=== PATIENT | female | born 1980 | race Caucasian/White ===

== ENCOUNTER 2024-09-16 09:01 | Outpatient (CLI) | payer OTHER, SELFPAY ==
--- NOTE | 2024-09-16 09:15 | CRLHL7_ITS ---
For Patients: As a result of the Century Cures Act, medical imaging exams and procedure reports are released immediately into your electronic medical record. You may view this report before your referring provider. If you have questions, please contact your health care provider. LEFT BREAST ULTRASOUND CLINICAL HISTORY: LEFT breast pain. COMPARISON: Mammogram 08/26/2024, 08/09/2024, ultrasound 08/26/2024, 01/22/2024. TECHNIQUE: Real-time ultrasound imaging of LEFT breast with imaging documentation. FINDINGS: Targeted sonogram LEFT breast 12 o`clock 5 cm from the nipple performed. Normal dense breast tissue is present. No fluid collection or mass. No suspicious findings. IMPRESSION: Normal targeted LEFT breast ultrasound. No suspicious findings. No evidence of malignancy. RECOMMENDATIONS: Clinical follow-up. Short-term interval BILATERAL diagnostic mammography and diagnostic LEFT breast ultrasound recommended in 6 months. Results and recommendations were discussed with the patient at the time of the exam. BI-RADS Category 3. Probably benign. A lay language report of this examination will be provided to the patient. Dictated by Cj Davies MD @ 09/16/2024 10:52:48 AM /sp SP/Dictated by: Cj Davies MD @ 09/16/2024 10:52:00 AM (Electronically Signed)
== END 2024-09-16 09:02 | disposition home or self-care (01) ==
LOC: US 09:02
PROVIDERS: Visit Provider Surgery
DX: N64.4 Mastodynia (principal)
CPT/HCPCS: 76642